=== PATIENT | male | born 1965 | race Caucasian/White ===

== ENCOUNTER 2022-03-27 09:16 | Emergency (ER) | payer BC ==
--- OUTSIDE RECORDS SUMMARY | 2022-03-27 09:19 | XMS REPORT | Continuity of Care Document ---
:1965 Author Organization [facility] t Address [address] [place] [address] Care Team Providers Name Role Phone ELAINE JIANG Primary Care Physician Unavailable Elaine Jiang Attending Clinician Unavailable KUSHAL PEPE Attending Clinician Unavailable Only, Adc Test Attending Clinician Unavailable Kushal Pepe MD Attending Clinician Payers Payer Name Policy Type Policy Number Effective Date Expiration Date S [facility] [id number] 2014 00:00:00 Problems Condition Condition Condition Status Onset Resolution Last Treating Co mments Source Name Details Category Date Date Treatment Clinician Date No known No known Disease Unive rs active active ity of problems problems [facility] Allergies, Adverse Reactions, Alerts Allergy Allergy Status Severity Reaction(s) Onset Inactive Treating Comm ents Source Name Type Date Date Clinician NO KNOWN Drug Active Univers ALLERGIE Class ity of S [facility] Social History Social Habit Start Date Stop Date Quantity Comments Source Exposure to Not sure [facility] SARS-CoV-2 (event) Medica l Branch Tobacco use and 2021-08-24 2021-08-24 Never used [facility] [place] exposure 00:00:00 00:00:00 Medical Branch Sex [birth year] At [birth year] [facility] y of [place] 00:00:00 00:00:00 Medical Branch Smoking Status Start Date Stop Date Source Never smoker [facility] Medications Ordered Filled Start Stop Current Ordering Indication Dosage Frequency Signature Comments Components Source Medication Medication Date Date Medication? Clinician (SIG) Name Name No known No Univers medications 2-23 ity of 13:36: [place] [facility] No known No Univers medications 2-23 ity of 13:36: [address] No known No Univers medications 2-23 ity of 13:36: [address] Vital Signs Vital Name Observation Time Observation Value Comments Source Systolic blood 2021-08-24 19:40:00 144 mm[Hg] Univer sity [facility] Diastolic blood 2021-08-24 19:40:00 87 mm[Hg] [facility] rate 2021-08-24 19:35:00 62 /min [facility] Body height 2021-08-24 19:35:00 175.3 cm [facility] Body weight 2021-08-24 19:35:00 96.191 kg [facility] BMI 2021-08-24 19:35:00 31.32 kg/m2 [facility] Oxygen saturation 2021-08-24 19:35:00 100 /min [facility] in Arterial blood [facility] anch by Pulse oximetry Procedures This patient has no known procedures. Encounters Start End Encounter Admission Attending Care Care Encounter Source Date/Time Date/Time Type Type Clinicians Facility Department ID 2022-02-01 Outpatient Jiang, Na STLMLC ST[facility] [id number] Common 08:09:03 [facility] 2022-01-27 Outpatient Quintin, Na STLMLC ST[facility] [id number] 2 Common 08:42:01 [facility] 2022-01-16 Outpatient Jiang, Na STLMLC STLMLC [id number] 2 Common 09:12:03 [facility] 2021-12-01 Outpatient Quintin, Na STLMLC ST[facility] [id number] 2 Common 16:12:02 [facility] 2022-01-27 2022-01-27 ambulatory STLMLC STLMLC [id number] Common 00:00:00 00:00:00 [facility] 2022-01-13 2022-01-13 ambulatory STLMLC STLMLC [id number] Common 00:00:00 00:00:00 [facility] 2021-12-01 2021-12-01 ambulatory STLMLC STLMLC [id number] Common 00:00:00 00:00:00 [facility] 2021-10-03 2021-10-03 Outpatient R MY, [facility] [id number] Univers 15:00:00 15:00:00 [facility] [id number] [facility] 2021-10-03 2021-10-03 [id number] Univers 13:00:00 13:03:00 KUSHAL orr [facility] 2021-09-30 2021-09-30 Laboratory Only, Adc Test [facility] [id number] Univers 07:30:00 07:45:00 Only Kushal Pepe [id number] ity of [facility] [id number] [facility] [place] [facility] [place] [phone] [facility] [address] Branch 2021-09-30 2021-09-30 Outpatient R [facility] [id number] Univers 07:30:00 07:30:00 [id number] ity [facility] 2021-09-30 2021-09-30 Outpatient R MY, [facility] [id number] Univers 07:30:00 07:30:00 KUSHAL orr [facility] 2021-09-07 2021-09-07 Telephone My, [facility] [id number] Univers 00:00:00 00:00:00 Kushal DAVID [id number] [place] [address] [id number] [facility] [id number] [place] [id number] [facility] 2021-08-242021-08-24 Office My [facility] [id number] Univers 13:40:00 13:58:14 Visit Kushal DAVID [id number] Francois [id number] Amy TERESA [phone] Md dical NAL [address] BUILDING Results This patient has no known results.
--- NOTE | 2022-03-27 10:15 | RAD REPORT ---
EXAM DESCRIPTION: USExtrem Venous W Compress Bil03/27/2022 10:09 am CLINICAL HISTORY: Leg swelling COMPARISON: none FINDINGS: The common femoral, superficial femoral, popliteal and posterior tibial veins bilaterally are compressible and demonstrate augmentation. Doppler demonstrates good flow. Grayscale, color and spectral analysis performed on all vessels IMPRESSION: No evidence of deep venous thrombosis involving either lower extremity.
--- NOTE | 2022-03-27 10:18 | RAD REPORT ---
EXAM DESCRIPTION: CT - Head Brain Wo Cont - 03/27/2022 10:10 am CLINICAL HISTORY: Dizziness COMPARISON: None. TECHNIQUE: Computed axial tomography of the head was obtained. IV contrast was not requested. All CT scans are performed using dose optimization technique as appropriate and may include automated exposure control or mA/KV adjustment according to patient size. FINDINGS: An intracranial bleed is not seen . The ventricles are normal in caliber. No significant hypodense areas within the brain visualized No extra-axial fluid collection is noted. Fluid within the sinuses/ mastoids is not seen. IMPRESSION: No acute intracranial abnormality is seen. If patient's symptoms persist MRI of the bra in would be recommended.
--- NOTE | 2022-03-27 10:26 | RAD REPORT ---
EXAM DESCRIPTION: Bella Single View03/27/2022 10:15 am CLINICAL HISTORY: Malaise COMPARISON: none FINDINGS: The lungs appear clear of acute infiltrate. The heart is normal size IMPRESSION: No acute abnormalities displayed
[2022-03-27 10:44] LABS: Absolute Lymphocytes (CBC) 1.1 K/uL (0.7-4.9); Lymphocytes % 13.8 % (15.3-44.8); MCV 74.5 fL (80-100); MPV 7.7 fL (7.6-11.3); RBC Red Blood Cell Count 3.75 M/uL (4.33-5.43)
[2022-03-27 10:49] LABS: Protime INR 1.05
[2022-03-27 11:08] LABS: Albumin 3.3 g/dL (3.4-5.0); Bilirubin Direct 0.2 mg/dL (0-0.2); Bilirubin Total 0.9 mg/dL (0.2-1.0); Magnesium 2.2 mg/dL (1.8-2.4); Potassium 4.4 mmol/L (3.5-5.1); Protein, Total 7.1 g/dL (6.4-8.2); Troponin High Sensitivity 5.7 pg/mL (<58.9)
--- NOTE | 2022-03-27 11:39 | RAD REPORT ---
EXAM DESCRIPTION: CT - Chest For Pe Angio - 03/27/2022 11:23 am CLINICAL HISTORY: Chest pain/elevated D-dimer COMPARISON: None. TECHNIQUE: Dynamically enhanced axial 3 mm thick images of the chest were obtained during administra tion of <100> mL Isovue 370 IV contrast. Coronal and oblique reconstruction images were generated and reviewed. Exam utilizes a protocol for optimal evaluation of pulmonary arterial tree. Maximum intensity projections 3D imaging was utilized All CT scans are performed using dose optimization technique as appropriate and may include automated exposure control or mA/KV adjustment according to patient size. FINDINGS: A pulmonary embolus is not seen. A thoracic aortic aneurysm is not noted. A pleural effusion is not seen. A pericardial effusion is not seen. A lung consolidation is not present. 6 millimeter nodule left lower lobe IMPRESSION: Negative for a pulmonary embolism. 6 millimeter nodule left lower lobe. Followup CT chest in 6 months recommended to assess stability
[2022-03-27] MEDS ORDERED: NA CHLORIDE 0.9% 1,000 ML ONE (12:26)
[2022-03-27] MEDS ORDERED: FENTANYL CITR 100 MCG/2 ML ONE (13:01)
[2022-03-27] MEDS ORDERED: MECLIZINE HCL 12.5 MG TAB ONE (13:32)
--- NOTE | 2022-03-27 13:58 | ER ---
Nurse's Notes [facility] Name: Moy Burris Age: 56 yrs Sex: Male : 1965 Arrival Date: 03/27/2022 Time: 09:19 Bed 3 Private MD: Diagnosis: Strain of muscle, fascia and tendon of the posterior muscle group at thigh level, right thigh;Other peripheral vertigo Presentation: 03/27 09:29 Chief complaint: Patient states: Went jogging on Sunday, started with jl7 bruising and pain to posterior legs, worsening over the weekend. Dr. Ribeiro sent for clot evaluation. Coronavirus screen: At this time, the client does not indicate any symptoms associated with coronavirus-19. Ebola Screen: No symptoms or risks identified at this time. Risk Assessment: Do you want to hurt yourself or someone else? Patient reports no desire to harm self or others. Onset of symptoms was March 23, 2022. 09:29 Method Of Arrival: Ambulatory [facility] 09:29 Acuity: VIVIENNE 3 jl7 10:03 Initial Sepsis Screen: Does the patient meet any 2 criteria? No. Patient's initial em6 sepsis screen is negative. Does the patient have a suspected source of infection? No. Patient's initial sepsis screen is negative. Triage Assessment: 09:30 General: Appears in no apparent distress. uncomfortable, Behavior is calm, cooperative, jl7 appropriate for age. Pain: Complains of pain in right leg and left leg Pain currently is 5 out of 10 on a pain scale. Historical: - Allergies: 09:30 No Known Allergies; jl7 - Home Meds: 09:30 GERD med [Active]; jl7 - PMHx: 09:30 GERD; jl7 - PSHx: 09:30 None; jl7 - Immunization history:: Adult Immunizations up to date. - Social history:: Smoking status: Patient denies any tobacco usage or history of. Screenin:35 Abuse screen: Denies threats or abuse. Nutritional screening: No deficits noted. em6 Tuberculosis screening: No symptoms or risk factors identified. 10:37 Fall Risk None identified. tw2 Assessment: 09:35 General: Appears in no apparent distress. Behavior is calm, cooperative. Pain: Denies em6 pain. Neuro: Cabrera Agitation-Sedation Scale (RASS): 0 - Alert and Calm Level of Consciousness is awake, alert, obeys commands, Oriented to person, place, time, situation, Reports headache in entire parietal area, frontal area. Cardiovascular: Reports lightheadedness, shortness of breath, with head movement Heart tones present Capillary refill < 3 seconds Patient's skin is warm and dry. Rhythm is sinus rhythm. Respiratory: Airway is patent Respiratory effort is even, unlabored, Respiratory pattern is regular, symmetrical, Breath sounds are clear bilaterally. GI: Abdomen is non-distended, Abd is soft and non tender X 4 quads. : No signs and/or symptoms were reported regarding the genitourinary system. EENT: No signs and/or symptoms were reported regarding the EENT system. Derm: Skin temperature is warm Bruising that is dark purple, on back of left leg and back of right leg. Musculoskeletal: Circulation, motion, and sensation intact. Range of motion: intact in all extremities, Reports discomfort when sitting down. 11:35 Reassessment: Patient appears in no apparent distress at this time. No changes from em6 previously documented assessment. Patient and/or family updated on plan of care and expected duration. Pain level reassessed. Patient is alert, oriented x 3, equal unlabored respirations, skin warm/dry/pink. Pain: Denies pain. Neuro: Level of Consciousness is awake, alert, obeys commands. Cardiovascular: Rhythm is sinus rhythm. Respiratory: Airway is patent Respiratory effort is even, unlabored, Respiratory pattern is regular, symmetrical. 12:56 Reassessment: Patient is alert, oriented x 3, equal unlabored respirations, skin em6 warm/dry/pink. Reassessment: notified provider of pain. new orders given . Pain: Complains of pain in right leg and left leg Pain does not radiate. Pain currently is 6 out of 10 on a pain scale. Quality of pain is described as pressure. Neuro: Cabrera Agitation-Sedation Scale (RASS): 0 - Alert and Calm Level of Consciousness is awake, alert, obeys commands, Oriented to person, place, time, situation. 14:00 Reassessment: Patient appears in no apparent distress at this time. Patient is alert, em6 oriented x 3, equal unlabored respirations, skin warm/dry/pink. Pain: Denies pain. Neuro: Cabrera Agitation-Sedation Scale (RASS): 0 - Alert and Calm Level of Consciousness is awake, alert, obeys commands, Oriented to person, place, time, situation. Vital Signs: 09:30 Temp 99; Weight 90.72 kg; Height 5 ft. 9 in. (175.26 cm); Pain 5/10; jl7 09:35 BP 140 / 75 Supine; Pulse 61; Resp 17; Pulse Ox 100% on R/A; em6 09:37 BP 155 / 84 Sitting; Pulse 72; Resp 12; Pulse Ox 98% on R/A; em6 09:38 BP 134 / 86 Standing; Pulse 71; Resp 14; Pulse Ox 100% ; em6 11:30 BP 148 / 82; Pulse 55; Resp 17; Pulse Ox 98% ; em6 12:50 BP 154 / 85; Pulse 53; Resp 19; Pulse Ox 100% on R/A; em6 14:15 BP 149 / 82; Pulse 71; Resp 20; Pulse Ox 100% ; em6 09:30 Body Mass Index 29.53 (90.72 kg, 175.26 cm) 7 ED Course: 09:19 Patient arrived in ED. rg4 09:21 [facility] jh7 09:22 Lawson Myers DO is Attending Physician. jh7 09:30 Triage completed. jl7 09:30 Arm band placed on right wrist. jl7 09:40 Ky Bethea, RN is Primary Nurse. jd3 10:03 Patient has correct armband on for positive identification. Placed in gown. Bed in low em6 position. Call light in reach. Side rails up X2. Adult w/ patient. laboratory monitor on. Pulse ox on. NIBP on. Warm blanket given. 10:11 Extrem Venous W Compression [place] US In Process Unspecified. EDMS 10:11 CT Head Brain wo Cont In Process Unspecified. EDMS 10:16 XRAY Chest (1 view) In Process Unspecified. EDMS 10:37 Inserted saline lock: 20 gauge in right antecubital area, using aseptic technique. tw2 Blood collected. 11:03 Notified Nurse Practitioner and/or Physician Rotoprinter of a critical lab result(s), d em6 dimer of 1310. call from rebeca. 11:25 CT Chest For PE Angio In Process Unspecified. EDMS 14:28 No provider procedures requiring assistance completed. IV discontinued, intact, em6 bleeding controlled, No redness/swelling at site. Pressure dressing applied. Administered Medications: 12:29 Drug: NS 0.9% 1000 ml Route: IV; Rate: 1 bolus; Site: right antecubital; em6 13:30 Follow up: Response: No adverse reaction; IV Status: Completed infusion; IV Intake: em6 1000ml 13:00 Drug: fentaNYL (PF) 50 mcg Route: IVP; Site: right antecubital; em6 14:00 Follow up: Response: No adverse reaction; RASS: Alert and Calm (0) em6 13:37 Drug: Meclizine 25 mg Route: PO; em6 14:14 Follow up: Response: No adverse reaction em6 Medication: 10:37 VIS not applicable for this client. tw2 Intake: 13:30 IV: 1000ml; Total: 1000ml. em6 Outcome: 13:58 Discharge ordered by . [facility] 14:28 Discharged to home ambulatory, with significant other. em6 14:28 Condition: stable 14:28 Discharge instructions given to patient, significant other, Instructed on discharge instructions, follow up and referral plans. medication usage, Demonstrated understanding of instructions, follow-up care, medications, Prescriptions given X 3. 14:29 Patient left the ED. em6 Signatures: Dispatcher [employer] EDMS Felipa Blanton RN RN tw2 Fadia Montero rg4 Jewell Chavis RN RN jl7 Ky Bethea RN RN jd3 Myla Soto, USED [employer] MECHANIC USED [employer] MECHANIC [email or web address] Marina Redd RN RN em6 Corrections: (The following items were deleted from the chart) 14:13 14:13 Response: No adverse reaction; RASS: Alert and Calm (0) em6 em6
--- NOTE | 2022-03-27 13:59 | EDPHYS ---
Physician Documentation [facility] Name: Moy Burris Age: 56 yrs Sex: Male : 1965 Arrival Date: 03/27/2022 Time: 09:19 Bed 3 Private MD: ED Physician Lawson Myers HPI: 03/27 09:30 This 56 yrs old Male presents to ER via Ambulatory with complaints of Leg Pain, Leg jh7 Swelling, near syncope. 09:30 The patient presents with a contusion, pain, that is acute, swelling, tenderness. The jh7 complaints affect the left leg and right leg. Onset: The symptoms/episode began/occurred 4 day(s) ago. The patient states that he played softball on Sunday. He states that he only ran and did not slide to the bases. Denies any trauma. Reports that bruising began on his posterior bilateral legs, worse on the right. Reports that both legs are tender and painful. He also began feeling dizzy with any head movement and reports that he had to sit on the floor multiple times due to feeling like he was going to pass out. Also states brief intermittent periods of confusion and not knowing where he was. Denies any head injury or visual changes. Denies chest pain and shortness of breath. States that he was sent from Dr. Ribeiro's office to rule out blood clots.. Historical: - Allergies: 09:30 No Known Allergies; jl7 - Home Meds: 09:30 GERD med [Active]; jl7 - PMHx: 09:30 GERD; jl7 - PSHx: 09:30 None; jl7 - Immunization history:: Adult Immunizations up to date. - Social history:: Smoking status: Patient denies any tobacco usage or history of. ROS: 09:30 Constitutional: Negative for fever, chills, and weight loss, Eyes: Negative for injury, jh7 pain, redness, and discharge, ENT: Negative for injury, pain, and discharge, Neck: Negative for injury, pain, and swelling, Cardiovascular: Negative for chest pain, palpitations, and edema, Respiratory: Negative for shortness of breath, cough, wheezing, and pleuritic chest pain, Abdomen/GI: Negative for abdominal pain, nausea, vomiting, diarrhea, and constipation, Back: Negative for injury and pain. 09:30 MS/extremity: Positive for ecchymosis, pain, swelling, tenderness, Negative for injury or acute deformity. 09:30 Skin: Positive for ecchymosis, Negative for erythema. 09:30 Neuro: Positive for dizziness, headache, near syncope, Negative for numbness, speech changes, visual changes. 09:30 All other systems are negative. Exam: 09:30 Constitutional: This is a well developed, well nourished patient who is awake, alert, jh7 and in no acute distress. Head/Face: Normocephalic, atraumatic. Eyes: Pupils equal round and reactive to light, extra-ocular motions intact. Lids and lashes normal. Conjunctiva and sclera are non-icteric and not injected. Cornea within normal limits. Periorbital areas with no swelling, redness, or edema. ENT: Nares patent. No nasal discharge, no septal abnormalities noted. Tympanic membranes are normal and external auditory canals are clear. Oropharynx with no redness, swelling, or masses, exudates, or evidence of obstruction, uvula midline. Mucous membranes moist. Neck: Trachea midline, no thyromegaly or masses palpated, and no cervical lymphadenopathy. Supple, full range of motion without nuchal rigidity, or vertebral point tenderness. No Meningismus. Chest/axilla: Normal chest wall appearance and motion. Nontender with no deformity. No lesions are appreciated. Cardiovascular: Regular rate and rhythm with a normal S1 and S2. No gallops, murmurs, or rubs. Normal PMI, no JVD. No pulse deficits. Respiratory: Lungs have equal breath sounds bilaterally, clear to auscultation and percussion. No rales, rhonchi or wheezes noted. No increased work of breathing, no retractions or nasal flaring. Abdomen/GI: Soft, non-tender, with normal bowel sounds. No distension or tympany. No guarding or rebound. No evidence of tenderness throughout. Back: No spinal tenderness. No costovertebral tenderness. Full range of motion. Skin: Warm, dry with normal turgor. Normal color with no rashes, no lesions, and no evidence of cellulitis. 09:30 Musculoskeletal/extremity: Extremities: ROM: intact in all extremities, Pulses: are normal with no appreciated deficits, Perfusion: the extremity is normally perfused throughout, pink, warm, with brisk capillary refill, Calf tenderness, that is moderate, of the right lower extremity, Sensation intact. DVT Exam: pain, of the right leg, swelling, of the right leg, tenderness, of the right leg, RLE: Significant ecchymosis over the posterior calf, hamstring, and inner thigh just distal to the groin. LLE: Ecchymosis present over the inner aspect of the upper thigh . 09:30 Neuro: Orientation: is normal, Mentation: is normal, Memory: is normal, Cranial nerves: grossly normal, extraocular movements are intact, Speech is clear and appropriate. Cerebellar function: is grossly normal, Motor: is normal, Sensation: is normal, Gait: is steady, Becomes dizzy and loses balance with head movement. Vital Signs: 09:30 Temp 99; Weight 90.72 kg; Height 5 ft. 9 in. (175.26 cm); Pain 5/10; jl7 09:35 BP 140 / 75 Supine; Pulse 61; Resp 17; Pulse Ox 100% on R/A; em6 09:37 BP 155 / 84 Sitting; Pulse 72; Resp 12; Pulse Ox 98% on R/A; em6 09:38 BP 134 / 86 Standing; Pulse 71; Resp 14; Pulse Ox 100% ; em6 11:30 BP 148 / 82; Pulse 55; Resp 17; Pulse Ox 98% ; em6 12:50 BP 154 / 85; Pulse 53; Resp 19; Pulse Ox 100% on R/A; em6 14:15 BP 149 / 82; Pulse 71; Resp 20; Pulse Ox 100% ; em6 09:30 Body Mass Index 29.53 (90.72 kg, 175.26 cm) [facility] MDM: 09:[address] [facility] 14:04 Differential diagnosis: DVT, PE, vertigo, torn hamstring muscle, dehydration. Data [facility] reviewed: vital signs, nurses notes, lab test result(s), EKG, radiologic studies, CT scan, plain films, ultrasound. Data interpreted: Pulse oximetry: is 100 %. Interpretation: normal. Counseling: I had a detailed discussion with the patient and/or guardian regarding: the historical points, exam findings, and any diagnostic results supporting the discharge/admit diagnosis, to return to the emergency department if symptoms worsen or persist or if there are any questions or concerns that arise at home. Response to treatment: the patient's symptoms have resolved after treatment, No dizziness and pain gone. ED course: The patient stated that while he was running he felt his hamstring muscle pop, which was not mentioned during his initial triage. He reports that he instantly knew something was wrong when it occurred. He remained hemodynamically stable throughout the ER visit. His dizziness resolved after fluids and meclizine. Advised him to ice and elevate the affected extremity and to also apply heat as well. If he develops any new concerning symptoms, he may return to the ER for further eval. The patient and daughter understood the plan of care.. 03/27 09:38 Order name: Basic Metabolic Panel; Complete Time: 11:36 [facility] 03/27 09:38 Order name: CBC with Diff; Complete Time: 10:58 [facility] 03/27 09:38 Order name: D-Dimer; Complete Time: 10:58 [facility] 03/27 09:38 Order name: LFT's; Complete Time: 11:36 [facility] 03/27 09:38 Order name: Magnesium; Complete Time: 11:36 [facility] 03/27 09:38 Order name: NT PRO-BNP; Complete Time: 11:36 [facility] 03/27 09:38 Order name: PT-INR; Complete Time: 10:58 [facility] 03/27 09:38 Order name: Troponin HS; Complete Time: 11:36 [facility] 03/27 09:38 Order name: XRAY Chest (1 view); Complete Time: 10:31 [facility] 03/27 09:38 Order name: Extrem Venous W Compression Hansel US; Complete Time: 10:31 [facility] 03/27 09:39 Order name: CT Head Brain wo Cont; Complete Time: 10:31 [facility] 03/27 11:00 Order name: CT Chest For PE Angio; Complete Time: 11:53 [facility] 03/27 09:38 Order name: EKG; Complete Time: 09:39 [facility] 03/27 09:38 Order name: Cardiac monitoring; Complete Time: 10:36 [facility] 03/27 09:38 Order name: EKG - Nurse/Tech; Complete Time: 10:28 [facility] 03/27 09:38 Order name: IV Saline Lock; Complete Time: 10:36 [facility] 03/27 09:38 Order name: Labs collected and sent; Complete Time: 10:36 [facility] 03/27 09:38 Order name: O2 Per Protocol; Complete Time: 10:21 [facility] 03/27 09:38 Order name: O2 Sat Monitoring; Complete Time: 10: [facility] 03/27 09:38 Order name: Orthostatics; Complete Time: 10:37 jh7 EC:23 Rate is 65 beats/min. Rhythm is regular. [place] interval is normal at 140 msec. QRS jh7 interval is normal at 108 msec. QT interval is normal at 428 msec. No Q waves. T waves are Normal. No ST changes noted. Clinical impression: Normal ECG. Administered Medications: 12:29 Drug: NS 0.9% 1000 ml Route: IV; Rate: 1 bolus; Site: right antecubital; em6 13:30 Follow up: Response: No adverse reaction; IV Status: Completed infusion; IV Intake: em6 1000ml 13:00 Drug: fentaNYL (PF) 50 mcg Route: IVP; Site: right antecubital; em6 14:00 Follow up: Response: No adverse reaction; RASS: Alert and Calm (0) em6 13:37 Drug: Meclizine 25 mg Route: PO; em6 14:14 Follow up: Response: No adverse reaction em6 Disposition: 03/28 08:35 Co-signature as Attending Physician, Lawson Myers DO I was immediately available on-site ms3 in the Emergency Department for consultation in the care of the patient. . Disposition Summary: 03/27/22 13:58 Discharge Ordered Location: Home [facility] Problem: new jh7 Symptoms: have improved jh7 Condition: Stable jh7 Diagnosis - Strain of muscle, fascia and tendon of the posterior muscle group at thigh level, jh7 right thigh - Other peripheral vertigo 7 Followup: 7 - With: Private Physician - When: 2 - 3 days - Reason: Recheck today's complaints Discharge Instructions: - Discharge Summary Sheet 7 - Hamstring Strain 7 - Muscle Strain 7 - Vertigo 7 Forms: - Medication Reconciliation Form 7 - Thank You Letter 7 - Prescription Opioid Use 7 Prescriptions: - Naprosyn 500 mg Oral Tablet - take 1 tablet by ORAL route 2 times per day take with food; 30 tablet; Refills: jh7 0, Product Selection Permitted - Zanaflex 4 mg Oral Tablet - take 1 tablet by ORAL route every 8 hours As needed; 20 tablet; Refills: 0, jh7 Product Selection Permitted - Tramadol 50 mg Oral Tablet - take 1 tablet by ORAL route every 8 hours as needed; 12 tablet; Refills: 0, jh7 Product Selection Permitted Signatures: Akhiler Jewell Sharif, RN RN jl7 Lawson Myers DO DO ms3 Myla Soto, DRILL PRESSER DRILL PRESSER jh7 Marina Redd RN RN em6
--- NOTE | 2022-03-29 13:12 | EKG ---
Test Date: 2022-03-27 Test Time: 10:23:32 [employer]: AIXA MEASUREMENT RESULTS: Intervals: Rate: 65 [place]: 140 QRSD: 108 QT: 428 QTc: 445 [place]: P: 60 [place]: 140 QRS: 37 T: 53 INTERPRETIVE STATEMENTS: Normal sinus rhythm Normal ECG No previous ECG available for comparison Electronically Signed On 03-29-22 13:07:39 CDT by Lopez Shah
[2022-03-29 21:06] VITALS: TEMP 99
[2022-03-29 21:19] VITALS: O2SAT 98
[2022-03-29 21:26] VITALS: BP 148/82
== END 2022-03-27 14:29 | disposition home or self-care (01) ==
LOC: ER 09:16
DX: S76.311A Strain of muscle, fascia and tendon of the posterior muscle group at thigh level, right thigh, initial encounter (principal); H81.399 Other peripheral vertigo, unspecified ear
CPT/HCPCS: 96361; 93005; 85025; 80048; 36415; 83735; 85610; 85379; 80076; 84484; 83880; 70450; 71275; 71045; 93970; 96374; 99284; Q9967; J8597; J3010; J7030